=== PATIENT | female | born 1985 | race Caucasian/White ===

== ENCOUNTER 2016-10-27 18:20 | Emergency (ER) | payer BC ==
[2016-10-27] MEDS ORDERED: KETOROLAC TROMETHAMINE 60 MG/2 ML VIAL IM ONE (18:50)
[2016-10-27 19:26] LABS: BASOPHILS % 0.3 (0.0-1.5); EOSINOPHILS % 2.1 % (0.0-6.8); MEAN CORPUSCULAR HEMOGLOBIN 31.9 pg (28.0-34.0); MEAN CORPUSCULAR VOLUME 94.9 fl (80.0-100.0); MONOCYTES % 5.5 % (0.0-11.0)
[2016-10-27 19:57] LABS: eGFR (African) > 60; eGFR (Non-African) > 60
[2016-10-27] MEDS ORDERED: CYCLOBENZAPRINE HCL 5 MG TABLET PO ONE (20:12)
[2016-10-27] MEDS ORDERED: IBUPROFEN 400 MG TABLET PO ONE (20:13)
--- NOTE | 2016-10-27 20:19 | ED Physician Documentation ---
Abdominal Pain - HISTORIAN Historian: patient - HPI Stated Complaint: abd pain Chief Complaint: Abdominal Pain Additonal Information: all day Onset: hours (10) Duration: constant, worse Timing: worse Context: denies: out of country travel, bad food, recent trauma Severity: moderate Quality: burning Front/Back of Body, Lg (Color): 1 - pain Associated Symptoms: none Exacerbated by: nothing Relieved by: nothing Further Comments: no - ROS CONST: no problems GI/: none CVS/RESP: none EYES/ENT: none MS/SKIN/LYMPH: none NEURO/PSYCH: none - SOCIAL HX Smoking History: cigarettes Alcohol Use: other (program for alcoholism) Drug Use: other (pain pills) - FAMILY HX Family History: no significant history - PAST HX Past History: other (endometriosis) Ischemic Bowel Risk Factors: none Other History: none Surgeries/Procedures: other (laproscopic abdominal surgeries) Immunizations: referred to PCP Allergies/Adverse Reactions: Allergies Allergy/AdvReac Type Severity Reaction Status Date / Time Penicillins Allergy Intermediate Hives Verified 10/27/16 18:40 - VITAL SIGNS Vital Signs: Vital Signs Temp Pulse Resp BP Pulse Ox 98.3 F 85 16 127/90 100 10/27/16 18:20 10/27/16 18:20 10/27/16 18:20 10/27/16 18:20 10/27/16 18:20 - REVIEWED ASSESSMENTS Nursing Assessment Reviewed: Yes Vitals Reviewed: Yes Progress - Results/Orders Results/Orders: cbc, cmp, ua ordered - Progress Progress: pt. improved after 60 mg toradol im, flexeril 10 mg p.o. and motrin 800 mg p.o. in er Critical Care Note - Critical Care Note Total Time (mins): 0 ED Results Lab/Radiology - Lab Results Lab Results: Lab Results 10/27/16 10/27/16 19:20 19:20 WBC 5.90 K/ul K/ul (4.00-12.00) RBC 3.95 M/ul M/ul (3.90-5.20) Hgb 12.6 g/dL g/dL (12.0-16.0) Hct 37.5 % % (34.5-46.5) MCV 94.9 fl fl (80.0-100.0) MCH 31.9 pg pg (28.0-34.0) MCHC 33.6 g/dL g/dL (30.0-36.0) RDW 12.7 % % (11.3-14.3) Plt Count 259 K/mm3 K/mm3 (130-400) Neut % (Auto) 68.5 % % (39.0-79.0) Lymph % (Auto) 21.7 % % (16.0-50.0) [place] % (Auto) 5.5 % % (0.0-11.0) Eos % (Auto) 2.1 % % (0.0-6.8) Baso % (Auto) 0.3 (0.0-1.5) Neut # 4.0 # k/uL # k/uL (1.4-7.7) Lymph # 1.3 # k/uL # k/uL (0.6-4.0) [place] # 0.3 # k/uL # k/uL (0.0-0.9) Eos # 0.1 # k/uL # k/uL (0.0-0.6) Baso # 0.0 # k/uL # k/uL (0.0-0.5) Reactive Lymphs % 1.8 % % (0.0-5.0) Reactive Lymphs # 0.1 # k/uL # k/uL (0.0-0.8) Sodium 141 mmol/L mmol/L (136-145) Potassium 3.7 mmol/L mmol/L (3.5-5.0) Chloride 101 mmol/L mmol/L (98-110) Carbon Dioxide 31 mmol/L mmol/L (20-32) BUN 6 mg/dL L mg/dL (10-26) Creatinine 0.7 mg/dL mg/dL (0.4-1.5) Estimated Creat Clear 154 Est GFR ( Amer) > 60 (60 - ) Est GFR (Non-Af Amer) > 60 (60 - ) Glucose 116 mg/dL H mg/dL (70-99) Calcium 9.5 mg/dL mg/dL (8.5-10.5) Total Bilirubin 0.3 mg/dL mg/dL (0.2-1.2) AST 27 U/L U/L (0-41) ALT 45 U/L U/L (0-45) Alkaline Phosphatase 62 U/L U/L (46-116) Total Protein 6.9 g/dL g/dL (6.0-8.5) Albumin 4.2 g/dL g/dL (3.0-5.5) Amylase 41 U/L U/L (20-104) - Radiology Radiology Impressions: ct abdomen/pelvis neg - Orders Orders: ED Orders Category Date Time Status CT ABDOMEN PELVIS S [CT ABD & PELVIS W/O CON] Stat Exams 10/27/16 Taken AMYLASE Routine Lab 10/27/16 19:20 Completed CBC/PLATELET/DIFF Routine Lab 10/27/16 19:20 Completed CMP Routine Lab 10/27/16 19:20 Completed URINALYSIS Routine Lab 10/27/16 18:51 Ordered URINE HCG Routine Lab 10/27/16 18:51 Ordered Cyclobenzaprine HCl [Flexeril] Med 10/27/16 20:12 Once 10 mg PO NOW ONE Ibuprofen [Advil] Med 10/27/16 20:13 Once 800 mg PO NOW ONE Ketorolac Tromethamine [Toradol] Med 10/27/16 18:50 Discontinued 60 mg IM NOW ONE Abdominal Pain Physical Exam - Physical Exam General Appearance: alert, moderate distress EENT: eye inspection normal, ENT inspection normal, pharynx normal, no signs of dehydration, FOUZIA, no nystagmus, TM's nml NECK: normal inspection, thyroid normal, supple RESPIRATORY: no resp distress, chest non-tender, breath sounds normal CVS: reg rate & rhythm, heart sounds normal, equal pulses, no murmur, no gallop , PMI nml, no JVD, no friction rub ABDOMEN: soft, no organomegaly, normal bowel sounds, no abdominal bruit, no distension, tenderness (suprapubic, right lower and left lower quadrant tenderness) BACK: normal inspection, no CVA tenderness SKIN: warm/dry, normal color EXTREMITIES: non-tender, normal range of motion, no evidence of injury NEURO: oriented X3, CN's nml as tested, motor nml, sensation nml, mood/affect nml, cognition normal Vital Signs: Vital Signs Temp Pulse Resp BP Pulse Ox 98.3 F 85 16 127/90 100 10/27/16 18:20 10/27/16 18:20 10/27/16 18:20 10/27/16 18:20 10/27/16 18:20 Discharge Clincal Impression: Endometriosis Comments: discharged with script for bentyl 20 mg #20 1 p.o. qid and meloxicam 7.5 mg 1 p.o. bid Condition: Stable Disposition: 01 HOME, SELF-CARE Decision to Admit: NO Decision Time: 20:15
--- NOTE | 2016-10-27 20:24 | Diagnostic Imaging Report ---
MARY HAGER [facility] [address] [facility] [address] [place], [place]. [address] Report Submission Date: Oct 27, 2016 7:51:36 PM CDT Patient Study Name: VITA GONZALEZ Date: Oct 27, 2016 7:31:31 PM CDT Modality Type: CT\SR Gender: F Description: CT ABD & PELVIS W/O CO : 89 Institution: [facility] Physician: MARY HAGER HISTORY: 31-year-old female with nausea and pelvic pain. COMPARISON: None available. TECHNIQUE: Helical CT images of the abdomen and pelvis were performed without contrast. Sagittal and coronal reformatted images were obtained. FINDINGS: CT abdomen: The lung bases are clear. The noncontrast liver, spleen, pancreas, kidneys, gallbladder, and adrenal glands are unremarkable. No abdominal aortic aneurysm. CT pelvis: No abnormal bowel dilatation, free air, or suspicious adenopathy. There is fecal retention throughout the colon. There is trace free fluid in the pelvis. No evidence of acute appendicitis. IMPRESSION: 1. Fecal retention in the colon suggestive of constipation. 2. Trace free fluid in the pelvis may be physiologic. 3. No evidence of bowel obstruction, acute appendicitis, or other acute process in the abdomen or pelvis. Electronically signed on Oct 27, 2016 7:51:36 PM CDT by: Agustín MORENO
[2016-10-27 20:29] VITALS: BP 136/89
[2016-10-28 05:34] LABS: APPEARANCE,URINE CLEAR (CLEAR); COLOR,URINE YELLOW (YELLOW); OCCULT BLOOD,URINE NEGATIVE (NEGATIVE); PH URINE 6.5 (5.0 - 8.0); UROBILINOGEN URINE 0.2 Eu (0.2-1.0)
== END 2016-10-27 20:25 | disposition home or self-care (01) ==
LOC: ED 18:20
DX: N80.9 Endometriosis, unspecified (principal)
CPT/HCPCS: 74176; 80053; 81002; 81025; 82150; 85025; 96372; 99283; J1885

== ENCOUNTER 2017-01-12 10:57 | Outpatient (CLI) | payer BC ==
--- NOTE | 2017-01-12 20:42 | Diagnostic Imaging Report ---
~ [facility] [address] [facility] [address] ~ ~ ~ ~ Report Submission Date: Jan 12, 2017 2:31:20 PM CDT Patient ~ Study Name: VITA GONZALEZ ~ Date: Jan 12, 2017 11:15:14 AM CDT ~ Modality Type: US Gender: F ~ Description: TRANSVAGINAL PELVIS : 89 ~ Institution: [facility] Physician JO ANN MARINELLI ~ ~ ~ Ultrasound pelvis endovaginal Date of exam: January 12, 2017 Clinical History: LEFT SIDED TENDERNESS, HISTORY OF ENDOMETRIOSIS (Hx) FINDINGS: January 12, 2017. The left ovary measures 3.1 x 2.0 x 2.1 cm. There are multiple left ovarian cysts or follicles. A 1.4 x 0.6 x 1.0 cm left ovarian cyst or follicle is present. There is normal Doppler color flow present in the left ovary. The cervix is prominent. The uterus measures 5.9 x 2.9 x 4.0 cm. The endometrial thickness is 0.7 cm -0.97 cm. The right ovary measures 3.5 x 2.2 x 2.6 cm. A right ovarian cyst or follicle measures 1.3 x 0.9 x 1.1 cm. There is normal Doppler color flow present in the right ovary. IMPRESSION: Bilateral ovarian cysts or follicles. Prominent cervix. ~ Electronically signed on Jan 12, 2017 2:31:20 PM CDT by: Radha MORENO
== END 2017-01-12 11:00 ==
LOC: RAD 10:57
PROVIDERS: ATTEND Family Medicine
DX: R10.2 Pelvic and perineal pain (principal)
CPT/HCPCS: 76830